=== PATIENT | male | born 1955 | race African-American/Black ===

== ENCOUNTER 2024-06-04 17:35 | Emergency (ER) | payer BC ==
[~2024-06-04] VITALS: Ht 182.9 cm; Wt 78.0 kg
[2024-06-04 17:38] VITALS: O2SAT 98
[2024-06-04 18:50] LABS: BASOPHILS % 0.6 % (0.0-2.0); EOSINOPHILS % 1.8 % (0.0-5.0); HEMOGLOBIN. 13.2 g/dL (14.0-18.0); LYMPHOCYTES % 32.6 % (20.0-50.0); MEAN CORPUSCULAR HEMOGLOBIN 30.1 pg (28.0-32.0); MEAN CORPUSCULAR HGB CONC 34.7 g/dL (31.0-37.0); MEAN CORPUSCULAR VOLUME 86.7 fL (80.0-94.0); MEAN PLATELET VOLUME 7.8 fl (7.4-10.4); MONOCYTES % 4.7 % (2.0-8.0); NEUTROPHILS % 60.3 % (40.0-76.0); PLATELET 190 x1000/uL (130-400); RED BLOOD CELL COUNT 4.38 mill/uL (4.7-6.1); RED CELL DISTRIBUTION WIDTH 15.2 % (11.6-14.6); WHITE BLOOD COUNT 5.3 x1000/uL (4.5-11.0)
[2024-06-04 18:59] LABS: CHLORIDE 109 mEq/L (98-107); POTASSIUM 3.1 mEq/L (3.5-5.1); SODIUM 145 mEq/L (136-145)
[2024-06-04 19:00] LABS: CARBON DIOXIDE 30 mEq/L (21-32)
[2024-06-04 19:01] LABS: CALCIUM 8.6 mg/dL (8.7-10.4)
[2024-06-04 19:05] LABS: CREATININE 0.9 mg/dL (0.6-1.3); GLUCOSE 97 mg/dL (70-105); UREA NITROGEN BLOOD 5 mg/dL (9-23)
[2024-06-04 19:08] LABS: TROPONIN I HIGH SENSITIVITY 10 ng/L (3.0-53)
[2024-06-04] MEDS: SODIUM CHLORIDE 0.9% 1,000 ML IV ONE (19:27)
[2024-06-04] MEDS: POTASSIUM CHLORIDE 20MEQ TABLET SR PO NR (21:21)
[2024-06-04 21:50] VITALS: BP 120/70; PULSE 70; RESP 15; TEMP 97.8
== END 2024-06-04 22:14 | disposition home or self-care (01) ==
LOC: ER 17:35
DX: R55 Syncope and collapse (principal); T46.7X5A Adverse effect of peripheral vasodilators, initial encounter; I10 Essential (primary) hypertension; Y92.89 Other specified places as the place of occurrence of the external cause
CPT/HCPCS: 99285; 71045; 80048; 83880; 85025; 84484; 36415; 93005; J7030